=== PATIENT | female | born 1950 | race Caucasian/White ===

== ENCOUNTER 2021-05-31 05:52 | Day surgery (SDC) | payer MEDICARE ==
[2021-05-30 10:37] VITALS: BMI 28.3
[2021-05-31] MEDS ORDERED: Lidocaine 1% MPF 2 ML VIAL ONE (06:14)
[2021-05-31] MEDS ORDERED: Bupivacaine PF 0.5% 30 ML VIAL ONE (06:26)
[2021-05-31] MEDS ORDERED: EPINEPHrine 1 MG/ML AMP ONE (06:26)
[2021-05-31] MEDS ORDERED: Lidocaine 1% PF 5 ML VIAL ONE (07:04)
[2021-05-31] MEDS ORDERED: Dexamethasone 4 mg/ml Vial ONE (07:04)
[2021-05-31] MEDS ORDERED: Glycopyrrolate 0.2 MG/ML 5 ML SYRINGE ONE (07:04)
[2021-05-31] MEDS ORDERED: Fentanyl 250 MCG/5 ML VIAL ONE (07:04)
[2021-05-31] MEDS ORDERED: PROPOFOL 20 ML ONE (07:04)
[2021-05-31] MEDS ORDERED: Rocuronium Bromide 10 MG/ML (10ML VIAL) ONE (07:04)
[2021-05-31] MEDS ORDERED: Ondansetron PF 4 MG/2 ML Vial ONE (07:04)
[2021-05-31] MEDS ORDERED: ceFAZolin 2 GM/DEX 5% 100 ML BAG ONE (07:17)
[2021-05-31] MEDS ORDERED: PHENYLEPHRINE-NS 100 MCG/ML 10 ML SYRINGE ONE (07:39)
[2021-05-31] MEDS ORDERED: Ketorolac Tromethamine 30 MG/ML VIAL ONE (07:50)
[2021-05-31] MEDS ORDERED: SUGAMMADEX SODIUM 200 MG/2 ML VIAL ONE (08:20)
[2021-05-31] MEDS ORDERED: Fentanyl 100 MCG/2 ML VIAL ONE (08:37)
== END 2021-05-31 10:20 | disposition home or self-care (01) ==
LOC: CSHSDC 05:52
PROVIDERS: ATTEND Surgery
PROC: 0FT44ZZ Resection of Gallbladder, Percutaneous Endoscopic Approach (ICD-10-PCS; principal; 2021-05-31)
DX: K80.10 Calculus of gallbladder with chronic cholecystitis without obstruction (principal)
CPT/HCPCS: 88304; J0171; J1100; J1885; J2405; J2704; J3010; S0020

== ENCOUNTER 2022-11-20 08:50 | Outpatient (CLI) | payer MEDICARE | END 2022-11-20 08:51 | disposition home or self-care (01) | LOC: CSHMAMMO 08:50 | PROVIDERS: ATTEND Family Medicine | DX: Z12.31 Encounter for screening mammogram for malignant neoplasm of breast (principal); R92.1 Mammographic calcification found on diagnostic imaging of breast; Z91.89 Other specified personal risk factors, not elsewhere classified | CPT/HCPCS: 77063; 77067 ==

== ENCOUNTER 2023-07-10 07:55 | Outpatient (CLI) | payer MEDICARE | END 2023-07-10 07:56 | disposition home or self-care (01) | LOC: CSHMRI 07:55 | PROVIDERS: ATTEND Orthopaedic Surgery | DX: M75.101 Unspecified rotator cuff tear or rupture of right shoulder, not specified as traumatic (principal); M75.121 Complete rotator cuff tear or rupture of right shoulder, not specified as traumatic; M25.811 Other specified joint disorders, right shoulder; S43.431A Superior glenoid labrum lesion of right shoulder, initial encounter; M19.011 Primary osteoarthritis, right shoulder ==